=== PATIENT | male | born 1995 | race Caucasian/White ===

== ENCOUNTER → 2022-01-23 | Outpatient (CLI) | payer OTHER | LOC: COL.RAD 13:27 | DX: M54.50 Low back pain, unspecified (principal) | CPT/HCPCS: G0260; J3301 ==

== ENCOUNTER 2023-07-30 11:07 | Day surgery (SDC) | payer OTHER ==
[~2023-07-30] VITALS: Ht 170.2 cm; Wt 72.3 kg
[2023-07-30] MEDS ORDERED: PROTONIX 40MG T40 MG PO (11:43)
[2023-07-30] MEDS ORDERED: VITAMIND3 5000 PO (11:44)
[2023-07-30] MEDS ORDERED: PHARMASSURE CHE30 MG PO (11:44)
[2023-07-30] MEDS ORDERED: IRON TABLETS325 MG PO (11:45)
[2023-07-30 12:08] VITALS: BP 148/97; PULSE 85; TEMP 98.4
[2023-07-30 14:55] VITALS: BP 107/72; PULSE 86; TEMP 98.2
[2023-07-30 15:10] VITALS: BP 117/76; PULSE 74
[2023-07-30 15:25] VITALS: BP 134/63; PULSE 77
--- NOTE | 2023-07-30 16:47 | NUR ---
[id number]: PT TO [facility]ERY B[facility] 9 FROM ENDO S/P EGD/COLON WITH POLYPECTOMY AND BIOPSIES ARRIVED SLEEPING IN [facility], BUT WOKE IMMEDIATELY UPON ENTERING ROOM - LEFT IN [facility]. CALL LIGHT IN REACH, ORIENTEDC TO ROOM AND DISPO A&O, PLACED ON MONITOR, VSS ON RA RECEIVED REPORT AND ASSUMED CARE OF PT FROM TAMIKO ALCAZAR WILL CALL COWORKER FOR RIDE HOME PROVIDED FOOD/FLUIDS, TOLERATING WELL MD IN TO SPEAK TO PT POST-PROCEDURE, EXTRA COPY OF RECORDS PREP'D AND HANDED TO PT HE WILL BE DEPLOYING SHORTLY TO [facility] PT HAS REMAINED A&O, NAD, VSS ON RA, TOLERATING PO, IS WITHOUT SIGNIFICANT COMPLAINT, WITH STEADY GAIT THRU OUT STAY IV D/C'D. D/C INSTRUCTIONS, FOLLOW UP REVIEWED AND HANDED TO PT. ALL QUESTIONS AND CONCERNS ADDRESSED TO PT SATISFACTION. TAKEN TO EXIT VIA W/C WITH ALL BELONGINGS AND PAPERWORK IN HAND, ASSISTED INTO PASSENGER SEAT OF POV. COWORKER TO DRIVE HOME.
[2023-07-30] MEDS ORDERED: TUMS500 MG (18:17)
== END 2023-07-30 16:00 | disposition home or self-care (01) ==
LOC: SDCO 11:07
DX: K21.00 Gastro-esophageal reflux disease with esophagitis, without bleeding (principal); D12.4 Benign neoplasm of descending colon; D12.5 Benign neoplasm of sigmoid colon; K63.5 Polyp of colon; K55.20 Angiodysplasia of colon without hemorrhage; K92.0 Hematemesis; R10.9 Unspecified abdominal pain; R14.0 Abdominal distension (gaseous); R19.5 Other fecal abnormalities; R19.7 Diarrhea, unspecified; R19.4 Change in bowel habit; F17.290 Nicotine dependence, other tobacco product, uncomplicated; Z79.899 Other long term (current) drug therapy; Z80.0 Family history of malignant neoplasm of digestive organs
CPT/HCPCS: J2704; J7120

== ENCOUNTER 2023-07-30 17:29 | Inpatient (IN) | payer OTHER ==
[2023-07-30] VITALS (168 sets, daily range): O2SAT 93–100
[~2023-07-30] VITALS: Ht 175.3 cm; Wt 75.1 kg
[~2023-07-30 17:29] MED LIST: IRON TABLETS325 MG PO; PHARMASSURE CHE30 MG PO; PROTONIX 40MG T40 MG PO; VITAMIND3 5000 PO
[2023-07-30 17:58] LABS: BASO % 0.6 % (0.0-2.0); EOS # 0.1 K/mm3 (0.0-0.7); EOS % 0.8 % (0.0-4.0); GRAN # 4.6 K/mm3 (1.4-6.5); GRAN % 69.1 % (42.2-75.2); HEMATOCRIT 41.7 % (42.0-52.0); HEMOGLOBIN 14.2 g/dl (13.5-18.0); LYMPH # 1.5 K/mm3 (1.2-3.4); LYMPH % 22.1 % (20.0-51.0); MEAN CELL VOLUME 99 fl (80.0-100.0); MEAN CORPUSCULAR HEMOGLOBIN 34 pg (27-31); MEAN CORPUSCULAR HGB CONC 34 g/dl (33.0-37.0); MEAN PLATELET VOLUME 9.5 fl (7.4-10.4); MONO # 0.5 K/mm3 (0.1-0.6); MONO % 7.1 % (1.7-9.3); PLATELET COUNT 278 K/mm3 (130-400); RED BLOOD COUNT 4.21 M/mm3 (4.20-5.60); REDCELL DISTRIBUTION WIDTH-CV 11.9 % (11.5-14.5)
[2023-07-30 18:17] LABS: ALBUMIN 3.8 gm/dL (3.5-5.0); BILIRUBIN,TOTAL 0.9 mg/dL (0.2-1.2); CALCIUM 8.5 mg/dL (8.4-10.2); CREATININE, serum 0.89 mg/dL (0.72-1.25); POTASSIUM 3.4 mmol/L (3.5-4.5)
[2023-07-30] MEDS ORDERED: TUMS500 MG (18:17)
[2023-07-30 19:36] LABS: HEMATOCRIT 34.6 % (42.0-52.0)
[2023-07-30 19:38] LABS: HEMOGLOBIN 12.2 g/dl (13.5-18.0)
--- NOTE | 2023-07-30 20:52 | NUR ---
PT ARRIVED TO ICU VIA BED ACCOMPANIED BY ED STAFF. PT HAS IV POTASSIUM RUNNING. PT HOOKED UP TO CRM MONITOR, VITALS WNL. PT IS AXO, NO REPORTS OF DIZZYNESS OR NAUSEA. PT IS SLIGHTLY PALE, BUT COOPORATIVE AND PLEASANT. LACERATION NOTED ON BACK OF HEAD DUE TO ALLEGED FALL IN ED. PT ORIENTED TO ICU/ROOM. CALL LIGHT IN REACH. PLAN OF CARE ONGOING.
[2023-07-30 22:40] LABS: HEMATOCRIT 32.8 % (42.0-52.0); HEMOGLOBIN 10.9 g/dl (13.5-18.0)
[2023-07-31] VITALS (1066 sets, daily range): BP systolic 104–128; BP diastolic 56–84; PULSE 61–91; TEMP 97.8–98.6; O2SAT 90–100
--- NOTE | 2023-07-31 01:21 | NUR ---
WALKED PT TO TOILET. PT STILL HAVING VERY LIQUID BRIGHT RED STOOL. NO DIZZYNESS REPORTED. VITALS WNL. CALL LIGHT IN REACH.
[2023-07-31 02:46] LABS: HEMATOCRIT 28.3 % (42.0-52.0); HEMOGLOBIN 9.9 g/dl (13.5-18.0)
--- NOTE | 2023-07-31 07:09 | NUR ---
Report received from TAMIKO Nettles. Reviewed labs and IVF. Reviewed POC. Pt resting in bed with eyes closed. Call light within reach. Will continue with POC.
--- NOTE | 2023-07-31 08:46 | NUR ---
Assessment completed. Pt is A&Ox4. C/o throbbing head pain from previous fall rating at 5/10. Denies any nausea or abdominal pain. Pt up with standby assist and had dark red, liquid stool. Vital signs are stable. Pt educated to call prior to getting up. Pt denies any other needs at this time. Will continue with POC.
--- NOTE | 2023-07-31 08:49 | NUR ---
Data Center Architect met with Patient at bedside to conduct Care Managment Assessmnet. Patient had an OUPT procedure yesterday and returned to [facility] with continued medical concerns after discharging home. Patient is made INPT this morning. Patient lives alone in [place], [place] and is established with PCP and insurance through the [employer]. Patient requests discharge medications be sent to [facility] in [place], [place]. Patient states that his best familial contacts are his parents, Jessica P:[phone]. Patient endorses independent ADL/IADLs prior to admission. Patient states to not have DPOAHC and declines forms at this time. Patient is anticipated to discharge home when medically ready.
--- NOTE | 2023-07-31 12:24 | NUR ---
Pt sitting up in bed, continues to c/o some "throbbing in head" but states it is better than before. No pain meds ordered at this time. Pt has not had another bowel movement since this morning. IVF infusing per orders. Pt has no other questions. Anxiously awaiting to eat something. Waiting for next H/H. Pt educated to call when he needs to get up. Pt verbalizes understanding. Call light within reach. Will continue with POC.
[2023-07-31 12:54] LABS: HEMATOCRIT 26.2 % (42.0-52.0); HEMOGLOBIN 8.8 g/dl (13.5-18.0)
--- NOTE | 2023-07-31 15:00 | NUR ---
Pt up to bathroom as standby assist. Pt had another liquid, dark red stool. Pt continues to deny abdominal pain, nausea or dizziness upon standing. Vital signs remain stable. Call light within reach.
--- NOTE | 2023-07-31 16:51 | NUR ---
Pt up and ambulated hallway with this RN. Pt denied any abdominal pain or any dizziness. Pt denies any needs at this time.
[2023-07-31 18:25] LABS: HEMOGLOBIN 9.3 g/dl (13.5-18.0)
--- NOTE | 2023-07-31 18:39 | NUR ---
Pt up to bathroom. Pt had small amounts of blood clots at bottom of toilet.
--- NOTE | 2023-07-31 19:00 | NUR ---
REPORRECEIVED FROM TAMIKO CISNEROS. PATIENT RESTING IN BED ON ROOM AIR. NO SIGNS OF ACUTE DISTRESS NOTED AT THIS TIME.
[2023-08-01] VITALS (151 sets, daily range): BP systolic 106–137; BP diastolic 52–85; PULSE 68–85; TEMP 97.5–98; O2SAT 79–100
[2023-08-01 00:41] LABS: HEMATOCRIT 24.2 % (42.0-52.0); HEMOGLOBIN 8.3 g/dl (13.5-18.0)
[2023-08-01 04:15] LABS: BASO % 0.5 % (0.0-2.0); EOS # 0.1 K/mm3 (0.0-0.7); EOS % 1.3 % (0.0-4.0); GRAN # 2.2 K/mm3 (1.4-6.5); GRAN % 56.1 % (42.2-75.2); LYMPH # 1.3 K/mm3 (1.2-3.4); LYMPH % 32.7 % (20.0-51.0); MEAN CELL VOLUME 98 fl (80.0-100.0); MEAN CORPUSCULAR HGB CONC 35 g/dl (33.0-37.0); MEAN PLATELET VOLUME 9.9 fl (7.4-10.4); MONO # 0.4 K/mm3 (0.1-0.6); MONO % 9.1 % (1.7-9.3); RED BLOOD COUNT 2.42 M/mm3 (4.20-5.60); REDCELL DISTRIBUTION WIDTH-CV 12.1 % (11.5-14.5)
[2023-08-01 04:22] LABS: HEMATOCRIT 23.8 % (42.0-52.0); HEMOGLOBIN 8.4 g/dl (13.5-18.0); MEAN CORPUSCULAR HEMOGLOBIN 35 pg (27-31); PLATELET COUNT 176 K/mm3 (130-400)
[2023-08-01 04:32] LABS: CALCIUM 7.8 mg/dL (8.4-10.2); CREATININE, serum 0.7 mg/dL (0.72-1.25); MAGNESIUM 1.9 mg/dL (1.6-2.6); POTASSIUM 3.7 mmol/L (3.5-4.5)
--- NOTE | 2023-08-01 05:15 | NUR ---
Received report from TAMIKO Treadwell at 1477. Pt is currently resting in bed with the call light within reach. Pt does not look in distress at this time and pt's vitals are stable at this time.
--- NOTE | 2023-08-01 06:10 | NUR ---
Pt had an uneventful night and pt's vitals were stable throughout the night. Pt alert and oriented x4 and able to walk independently. Pt currently sitting up in bed talking on the phone with the call light within reach. Will report to day shift nurse.
--- NOTE | 2023-08-01 13:05 | NUR ---
1300 DISCHARGE PAPER WORK REVIEWED WITH PT. PT UNDERSTANDS ALL INSTRUCTIONS AND FOLLOW UP APPTS.
--- NOTE | 2023-08-01 13:41 | NUR ---
[address] SINGH OFFICE TO SCHEDULE FOLLOW UP VOICEMAIL LEFT TO CALL PT CELL PHONE FOR [facility] FOLLOW UP. 1320 PT WALKED OUT TO FRIENDS CAR WITH ALL BELONGINGS.
== END 2023-08-01 13:20 | disposition home or self-care (01) | DRG 379 ==
LOC: COL.ER 17:29 → ICU 18:30 → SURG 18:30 → ICU 18:31 → EDBEDREQTM 20:33 → ICU 08-01 13:20
PROVIDERS: Emergency Medicine; Nurse Practitioner Family; ADMIT Internal Medicine
DX: K62.5 Hemorrhage of anus and rectum (principal); E87.6 Hypokalemia; K21.9 Gastro-esophageal reflux disease without esophagitis
CPT/HCPCS: C9113; J1756; J3480; J7030; Q9967

== ENCOUNTER 2023-08-21 09:48 | Outpatient (RCR) | payer OTHER ==
[~2023-08-21] VITALS: Ht 170.2 cm; Wt 71.8 kg
[~2023-08-21 09:48] MED LIST changes: +TUMS500 MG
[2023-08-21 10:04] VITALS: BP 126/87; PULSE 88; TEMP 98.2
== END 2023-08-21 10:38 | disposition home or self-care (01) ==
LOC: EUO 09:48
DX: D50.9 Iron deficiency anemia, unspecified (principal)
CPT/HCPCS: J1756